=== PATIENT | male | born 1965 | race Caucasian/White ===

== ENCOUNTER → 2017-04-28 | Outpatient (REF) | payer OTHER ==
[2017-04-28 13:40] LABS: ESTIMATED AVERAGE GLUCOSE 146 MG/DL (60-110); HEMOGLOBIN A1c 6.7 %
[2017-04-28 13:53] LABS: MALB URINE SIEMENS 30.6 MG/L; MAU/CREAT RATIO 24.2 MCG/MG (0.0-30.0)
== END ==
LOC: M SFHCPLAZ 11:11
DX: E11.9 Type 2 diabetes mellitus without complications (principal)

== ENCOUNTER → 2018-01-19 | Outpatient (REF) | payer OTHER ==
[2018-01-19 12:08] LABS: HEMATOCRIT 42.3 % (42.0-52.0); HEMOGLOBIN 14.2 g/dl (13.5-17.5); MEAN CORPUSCULAR HEMOGLOBIN 30.8 pg (27.0-33.0); MEAN CORPUSCULAR HGB CONC 33.6 g/dl (32.0-36.5); MEAN CORPUSCULAR VOLUME 91.8 fl (80.0-96.0); PLATELET COUNT, AUTOMATED 192 10^3/uL (150-450); RED BLOOD COUNT 4.61 10^6/uL (4.30-6.10); RED CELL DISTRIBUTION WIDTH 12.9 % (11.5-14.5); WHITE BLOOD COUNT 6.9 10^3/uL (4.0-10.0)
[2018-01-19 12:30] LABS: ALBUMIN 4.1 GM/DL (3.2-5.2); ALBUMIN/GLOBULIN RATIO 1.21 (1.00-1.93); ALKALINE PHOSPHATASE 76 U/L (45-117); ALT/SGPT 157 U/L (12-78); ANION GAP 8 MEQ/L (8-16); AST/SGOT 72 U/L (7-37); BILIRUBIN,TOTAL 0.5 MG/DL (0.2-1.0); BLOOD UREA NITROGEN 15 MG/DL (7-18); CARBON DIOXIDE LEVEL 29 MEQ/L (21-32); CHLORIDE LEVEL 104 MEQ/L (98-107); CHOLESTEROL LEVEL 191 MG/DL (<200); CHOLESTEROL RISK RATIO 4.063 (<5); CREATININE FOR GFR 1.26 MG/DL (0.70-1.30); GLOMERULAR FILTRATION RATE > 60.0 (>56); GLUCOSE, FASTING 110 MG/DL (70-100); HDL CHOLESTEROL 47 MG/DL (>40); LDL CHOLESTEROL 98 MG/DL (<100); NON-HDL-C 144 MG/DL; POTASSIUM SERUM 4.3 MEQ/L (3.5-5.1); SODIUM LEVEL 141 MEQ/L (136-145); TOTAL PROTEIN 7.5 GM/DL (6.4-8.2); TRIGLYCERIDES LEVEL 232 MG/DL (<150)
[2018-01-19 12:48] LABS: ESTIMATED AVERAGE GLUCOSE 134 MG/DL (60-110); HEMOGLOBIN A1c 6.3 %
[2018-01-19 13:57] LABS: MAU/CREAT RATIO 36.2 MCG/MG (0.0-30.0)
== END ==
LOC: M SFHCPLAZ 08:45
DX: E11.9 Type 2 diabetes mellitus without complications (principal)
CPT/HCPCS: 84443

== ENCOUNTER → 2018-07-26 | Outpatient (REF) | payer MEDICARE, MEDICAID ==
[~2018-07-26] MED LIST: /LOR25TA PO; BENI20TA11 PO; FERR325T PO; FLEXERIL PO; NAPR500T81 PO; WELCHOL PO
[2018-07-26 11:19] LABS: ALBUMIN 4.4 GM/DL (3.2-5.2); ALT/SGPT 209 U/L (12-78); BILIRUBIN,TOTAL 0.4 MG/DL (0.2-1.0); BLOOD UREA NITROGEN 13 MG/DL (7-18); CALCIUM LEVEL 9.1 MG/DL (8.5-10.1); CARBON DIOXIDE LEVEL 30 MEQ/L (21-32); CHLORIDE LEVEL 106 MEQ/L (98-107); CHOLESTEROL LEVEL 202 MG/DL (<200); CHOLESTEROL RISK RATIO 3.607 (<5); CREATININE FOR GFR 1.24 MG/DL (0.70-1.30); GLOMERULAR FILTRATION RATE > 60.0 (>56); GLUCOSE, FASTING 164 MG/DL (70-100); HDL CHOLESTEROL 56 MG/DL (>40); LDL CHOLESTEROL 120 MG/DL (<100); NON-HDL-C 146 MG/DL; POTASSIUM SERUM 4.4 MEQ/L (3.5-5.1); SODIUM LEVEL 141 MEQ/L (136-145); TOTAL PROTEIN 7.5 GM/DL (6.4-8.2); TRIGLYCERIDES LEVEL 128 MG/DL (<150)
[2018-07-26 11:33] LABS: MAU/CREAT RATIO 43.7 MCG/MG (0.0-30.0)
[2018-07-26 11:46] LABS: HEMOGLOBIN A1c 7.5 %
== END ==
LOC: M SFHCPLAZ 08:40
PROVIDERS: ATTEND Nurse Practitioner Adult Health
DX: E11.9 Type 2 diabetes mellitus without complications (principal)

== ENCOUNTER → 2019-01-16 | Outpatient (REF) | payer MEDICARE, MEDICAID ==
[2019-01-16 14:11] LABS: ALBUMIN 4.2 GM/DL (3.2-5.2); ALT/SGPT 163 U/L (12-78); BILIRUBIN,TOTAL 0.6 MG/DL (0.2-1.0); BLOOD UREA NITROGEN 15 MG/DL (7-18); CALCIUM LEVEL 9.4 MG/DL (8.5-10.1); CARBON DIOXIDE LEVEL 30 MEQ/L (21-32); CHLORIDE LEVEL 104 MEQ/L (98-107); CHOLESTEROL LEVEL 196 MG/DL (<200); CHOLESTEROL RISK RATIO 3.563 (<5); CREATININE FOR GFR 1.25 MG/DL (0.70-1.30); GLOMERULAR FILTRATION RATE > 60.0 (>56); GLUCOSE, FASTING 132 MG/DL (70-100); HDL CHOLESTEROL 55 MG/DL (>40); LDL CHOLESTEROL 103 MG/DL (<100); NON-HDL-C 141 MG/DL; POTASSIUM SERUM 4.2 MEQ/L (3.5-5.1); SODIUM LEVEL 138 MEQ/L (136-145); TOTAL PROTEIN 7.9 GM/DL (6.4-8.2); TRIGLYCERIDES LEVEL 189 MG/DL (<150)
[2019-01-16 15:00] LABS: MALB URINE SIEMENS 35.8 MG/L; MAU/CREAT RATIO 17.1 MCG/MG (0.0-30.0)
[2019-01-16 15:28] LABS: HEMOGLOBIN A1c 8.4 %
== END ==
LOC: M SFHCPLAZ 10:42
PROVIDERS: ATTEND Nurse Practitioner Adult Health
DX: E11.9 Type 2 diabetes mellitus without complications (principal); Z13.220 Encounter for screening for lipoid disorders
CPT/HCPCS: 36415; 80053; 80061; 82043; 83036; 84443; 90682; G0008

== ENCOUNTER → 2019-10-08 | Outpatient (REF) | payer MEDICARE, MEDICAID ==
[2019-10-08 18:11] LABS: ALBUMIN 4.3 GM/DL (3.2-5.2); ALT/SGPT 94 U/L (12-78); BILIRUBIN,TOTAL 0.4 MG/DL (0.2-1.0); BLOOD UREA NITROGEN 15 MG/DL (7-18); CALCIUM LEVEL 9.8 MG/DL (8.5-10.1); CARBON DIOXIDE LEVEL 30 MEQ/L (21-32); CHLORIDE LEVEL 103 MEQ/L (98-107); CHOLESTEROL LEVEL 199 MG/DL (<200); CHOLESTEROL RISK RATIO 3.901 (<5); CREATININE FOR GFR 1.29 MG/DL (0.70-1.30); GLOMERULAR FILTRATION RATE > 60.0 (>56); GLUCOSE, FASTING 93 MG/DL (70-100); HDL CHOLESTEROL 51 MG/DL (>40); LDL CHOLESTEROL 92 MG/DL (<100); NON-HDL-C 148 MG/DL; POTASSIUM SERUM 4.6 MEQ/L (3.5-5.1); SODIUM LEVEL 140 MEQ/L (136-145); TOTAL PROTEIN 8.2 GM/DL (6.4-8.2); TRIGLYCERIDES LEVEL 279 MG/DL (<150)
[2019-10-08 18:15] LABS: HEMOGLOBIN A1c 6.9 %
[2019-10-08 18:34] LABS: CREATININE, URINE 25.6 MG/DL; MALB URINE SIEMENS < 5.0 MG/L; MAU/CREAT RATIO 19.5 MCG/MG (0.0-30.0)
== END ==
LOC: M SFHCPLAZ 14:14
PROVIDERS: ATTEND Nurse Practitioner Adult Health
DX: E11.9 Type 2 diabetes mellitus without complications (principal); I10 Essential (primary) hypertension; Z13.220 Encounter for screening for lipoid disorders

== ENCOUNTER → 2020-04-17 | Outpatient (REF) | payer MEDICARE, MEDICAID ==
[2020-04-17 14:33] LABS: HEMOGLOBIN A1c 6.6 %
[2020-04-17 15:02] LABS: ALBUMIN 4.5 GM/DL (3.2-5.2); ALT/SGPT 94 U/L (12-78); BILIRUBIN,TOTAL 0.4 MG/DL (0.2-1.0); BLOOD UREA NITROGEN 19 MG/DL (7-18); CALCIUM LEVEL 10.6 MG/DL (8.5-10.1); CARBON DIOXIDE LEVEL 31 MEQ/L (21-32); CHLORIDE LEVEL 102 MEQ/L (98-107); GLOMERULAR FILTRATION RATE > 60.0 (>56); GLUCOSE, FASTING 139 MG/DL (70-100); POTASSIUM SERUM 4.2 MEQ/L (3.5-5.1); SODIUM LEVEL 140 MEQ/L (136-145)
== END ==
LOC: M SFHCPLAZ 11:00
PROVIDERS: ATTEND Nurse Practitioner Adult Health
DX: E11.9 Type 2 diabetes mellitus without complications (principal)

== ENCOUNTER → 2020-10-16 | Outpatient (CLI) | payer MEDICARE, MEDICAID ==
[2020-10-16 18:02] LABS: ALBUMIN 4.5 GM/DL (3.2-5.2); ALT/SGPT 140 U/L (12-78); BILIRUBIN,TOTAL 0.4 MG/DL (0.2-1.0); BLOOD UREA NITROGEN 16 MG/DL (7-18); CALCIUM LEVEL 10.1 MG/DL (8.5-10.1); CARBON DIOXIDE LEVEL 31 MEQ/L (21-32); CHLORIDE LEVEL 101 MEQ/L (98-107); CHOLESTEROL LEVEL 217 MG/DL (<200); CHOLESTEROL RISK RATIO 4.018 (<5); CREATININE FOR GFR 1.24 MG/DL (0.70-1.30); GLOMERULAR FILTRATION RATE > 60.0 (>56); GLUCOSE, FASTING 184 MG/DL (70-100); HDL CHOLESTEROL 54 MG/DL (>40); LDL CHOLESTEROL 93 MG/DL (<100); NON-HDL-C 163 MG/DL; POTASSIUM SERUM 4.7 MEQ/L (3.5-5.1); SODIUM LEVEL 136 MEQ/L (136-145); TOTAL PROTEIN 8.3 GM/DL (6.4-8.2); TRIGLYCERIDES LEVEL 351 MG/DL (<150)
[2020-10-16 18:11] LABS: MALB URINE SIEMENS 28.6 MG/L
[2020-10-16 18:39] LABS: HEMOGLOBIN A1c 7.6 %
== END ==
LOC: M PLALAB 14:08
PROVIDERS: ATTEND Nurse Practitioner Adult Health
DX: Z13.220 Encounter for screening for lipoid disorders (principal); E11.9 Type 2 diabetes mellitus without complications
CPT/HCPCS: 36415; 80053; 80061; 82043; 83036; 90471; 90715; G0463

== ENCOUNTER → 2021-05-04 | Outpatient (CLI) | payer MEDICARE, MEDICAID ==
[2021-05-04 17:52] LABS: MALB URINE SIEMENS 30.5 MG/L; MAU/CREAT RATIO 20.3 MCG/MG (0.0-30.0)
[2021-05-04 18:22] LABS: ALBUMIN 4.2 GM/DL (3.2-5.2); BILIRUBIN,TOTAL 0.3 MG/DL (0.2-1.0); CALCIUM LEVEL 9.6 MG/DL (8.5-10.1); CREATININE FOR GFR 1.31 MG/DL (0.70-1.30); POTASSIUM SERUM 3.9 MEQ/L (3.5-5.1); THYROID STIMULATING HORMONE 3.07 uIU/ML (0.358-3.740); TOTAL PROTEIN 7.6 GM/DL (6.4-8.2)
[2021-05-04 19:04] LABS: HEMOGLOBIN A1c 9.8 %
== END ==
LOC: M PLALAB 15:08
PROVIDERS: ATTEND Nurse Practitioner Adult Health
DX: E11.9 Type 2 diabetes mellitus without complications (principal); Z12.5 Encounter for screening for malignant neoplasm of prostate; Z83.49 Family history of other endocrine, nutritional and metabolic diseases

== ENCOUNTER → 2021-12-07 | Outpatient (CLI) | payer MEDICARE, MEDICAID ==
[2021-12-07 14:00] LABS: ALBUMIN 4.7 GM/DL (3.2-5.2); BILIRUBIN,TOTAL 0.6 MG/DL (0.2-1.0); CALCIUM LEVEL 9.6 MG/DL (8.5-10.1); CHOLESTEROL RISK RATIO 2.666 (<5); CREATININE FOR GFR 1.42 MG/DL (0.70-1.30); GLOMERULAR FILTRATION RATE 54.7 (>56); POTASSIUM SERUM 4.2 MEQ/L (3.5-5.1); TOTAL PROTEIN 8.1 GM/DL (6.4-8.2)
[2021-12-07 14:13] LABS: MALB URINE SIEMENS 26.8 MG/L; MAU/CREAT RATIO 24.1 MCG/MG (0.0-30.0)
[2021-12-07 14:45] LABS: HEMOGLOBIN A1c 6.7 %
== END ==
LOC: M PLALAB 09:40
PROVIDERS: ATTEND Nurse Practitioner Adult Health
DX: E11.9 Type 2 diabetes mellitus without complications (principal)

== ENCOUNTER → 2022-05-31 | Outpatient (CLI) | payer MEDICARE, MEDICAID ==
[2022-05-31 14:47] LABS: CREATININE, URINE 112.3 MG/DL
[2022-05-31 14:48] LABS: MAU/CREAT RATIO 6.2 MCG/MG (0.0-30.0)
[2022-05-31 14:52] LABS: ALBUMIN 4.7 G/DL (3.2-5.2); ALKALINE PHOSPHATASE 75 U/L (46-116); ALT/SGPT 119 U/L (7.0-40); AST/SGOT 76 U/L (<34); BILIRUBIN,TOTAL 0.8 MG/DL (0.3-1.2); BLOOD UREA NITROGEN 13 MG/DL (9-23); CALCIUM LEVEL 9.8 MG/DL (8.5-10.1); CARBON DIOXIDE LEVEL 30 MMOL/L (20-31); CHLORIDE LEVEL 103 MMOL/L (98-107); CHOLESTEROL LEVEL 141 MG/DL (<200); CHOLESTEROL RISK RATIO 2.47 (<5); GLOMERULAR FILTRATION RATE > 60.0 (>56); GLUCOSE, FASTING 104 MG/DL (60-100); LDL CHOLESTEROL 48.6 MG/DL (<100); POTASSIUM SERUM 4.4 MMOL/L (3.5-5.1); SODIUM LEVEL 139 MMOL/L (136-145); THYROID STIMULATING HORMONE 3.161 uIU/ML (0.55-4.78); TOTAL PROTEIN 7.6 G/DL (5.7-8.2); TRIGLYCERIDES LEVEL 177 MG/DL (<150)
== END ==
LOC: M PLALAB 09:46
PROVIDERS: ATTEND Nurse Practitioner Adult Health
DX: Z12.5 Encounter for screening for malignant neoplasm of prostate (principal); E78.00 Pure hypercholesterolemia, unspecified
CPT/HCPCS: 80053; 80061; 82043; 84443; G0103

== ENCOUNTER → 2022-10-25 | Outpatient (CLI) | payer MEDICARE, MEDICAID ==
[2022-10-25 14:01] LABS: HEMOGLOBIN A1c 6.4 % (4.0-6.0)
[2022-10-25 14:06] LABS: ALBUMIN 4.5 G/DL (3.2-5.2); ALKALINE PHOSPHATASE 72 U/L (46-116); ALT/SGPT 109 U/L (7.0-40); AST/SGOT 54 U/L (<34); BILIRUBIN,TOTAL 0.6 MG/DL (0.3-1.2); BLOOD UREA NITROGEN 14 MG/DL (9-23); CALCIUM LEVEL 9.9 MG/DL (8.5-10.1); CARBON DIOXIDE LEVEL 28 MMOL/L (20-31); CHLORIDE LEVEL 103 MMOL/L (98-107); CHOLESTEROL LEVEL 141 MG/DL (<200); CHOLESTEROL RISK RATIO 2.63 (<5); CREATININE FOR GFR 1.19 MG/DL (0.70-1.30); GLOMERULAR FILTRATION RATE > 60.0 (>56); GLUCOSE, FASTING 112 MG/DL (60-100); HDL CHOLESTEROL 53.5 MG/DL (>40); LDL CHOLESTEROL 59.1 MG/DL (<100); NON-HDL-C 87.5 MG/DL; POTASSIUM SERUM 4.2 MMOL/L (3.5-5.1); SODIUM LEVEL 140 MMOL/L (136-145); TOTAL PROTEIN 7.4 G/DL (5.7-8.2); TRIGLYCERIDES LEVEL 142 MG/DL (<150)
[2022-10-25 14:08] LABS: THYROID STIMULATING HORMONE 2.737 uIU/ML (0.55-4.78)
== END ==
LOC: M PLALAB 10:53
PROVIDERS: ATTEND Nurse Practitioner Adult Health
DX: E11.9 Type 2 diabetes mellitus without complications (principal); Z13.220 Encounter for screening for lipoid disorders; Z83.49 Family history of other endocrine, nutritional and metabolic diseases

== ENCOUNTER → 2023-04-27 | Outpatient (CLI) | payer MEDICARE, MEDICAID ==
[2023-04-27 14:37] LABS: HEMOGLOBIN A1c 6.7 % (4.0-6.0)
[2023-04-27 14:41] LABS: ALBUMIN 4.7 G/DL (3.2-5.2); ALKALINE PHOSPHATASE 75 U/L (46-116); ALT/SGPT 112 U/L (7.0-40); AST/SGOT 49 U/L (<34); BILIRUBIN,TOTAL 0.7 MG/DL (0.3-1.2); BLOOD UREA NITROGEN 24 MG/DL (9-23); CALCIUM LEVEL 9.6 MG/DL (8.5-10.1); CARBON DIOXIDE LEVEL 28 MMOL/L (20-31); CHLORIDE LEVEL 104 MMOL/L (98-107); CHOLESTEROL LEVEL 145 MG/DL (<200); CHOLESTEROL RISK RATIO 2.62 (<5); CREATININE FOR GFR 1.16 MG/DL (0.70-1.30); GLOMERULAR FILTRATION RATE > 60.0 (>56); GLUCOSE, FASTING 98 MG/DL (60-100); HDL CHOLESTEROL 55.3 MG/DL (>40); LDL CHOLESTEROL 61.5 MG/DL (<100); NON-HDL-C 89.7 MG/DL; POTASSIUM SERUM 4.2 MMOL/L (3.5-5.1); SODIUM LEVEL 139 MMOL/L (136-145); THYROID STIMULATING HORMONE 2.365 uIU/ML (0.55-4.78); TOTAL PROTEIN 7.7 G/DL (5.7-8.2); TRIGLYCERIDES LEVEL 141 MG/DL (<150)
[2023-04-27 14:42] LABS: MAU/CREAT RATIO 14.7 MCG/MG (0.0-30.0)
== END ==
LOC: M PLALAB 11:08
PROVIDERS: ATTEND Nurse Practitioner Adult Health
DX: E11.9 Type 2 diabetes mellitus without complications (principal); Z13.220 Encounter for screening for lipoid disorders; Z83.49 Family history of other endocrine, nutritional and metabolic diseases

== ENCOUNTER 2023-07-13 10:40 | Emergency (ER) | payer MEDICARE, MEDICAID ==
[~2023-07-13] VITALS: Ht 172.7 cm; Wt 104.7 kg
[2023-07-13] MEDS ORDERED: ALBU8.5H (10:52)
[2023-07-13] MEDS ORDERED: MELO15TA28 (10:52)
[2023-07-13] MEDS ORDERED: ARNU1INH3 (10:52)
[2023-07-13] MEDS ORDERED: STEG15TA (10:52)
[2023-07-13] MEDS ORDERED: LOSA100T46 (10:52)
[2023-07-13] MEDS ORDERED: ATOR1TAB19 (10:52)
[2023-07-13] MEDS ORDERED: METF-838 (10:52)
[2023-07-13 11:18] LABS: BASO # 0.1 10^3/uL (0.0-0.2); BASO % 0.9 % (0.0-1.0); EOS # 0.1 10^3/uL (0.0-0.5); EOS % 1.4 % (0.0-3.0); HEMATOCRIT 42.9 % (42.0-52.0); HEMOGLOBIN 15.1 g/dl (13.5-17.5); LYMPH # 1.2 10^3/uL (1.5-5.0); LYMPH % 18.3 % (24.0-44.0); MEAN CORPUSCULAR HEMOGLOBIN 31.7 pg (27.0-33.0); MEAN CORPUSCULAR HGB CONC 35.2 g/dl (32.0-36.5); MEAN CORPUSCULAR VOLUME 90.1 fl (80.0-96.0); MONO # 0.4 10^3/uL (0.0-0.8); MONO % 5.8 % (2.0-8.0); NEUTROPHILS # 4.8 10^3/uL (1.5-8.5); NEUTROPHILS % 73.3 % (36.0-66.0); PLATELET COUNT, AUTOMATED 180 10^3/uL (150-450); RED BLOOD COUNT 4.76 10^6/uL (4.30-6.10); WHITE BLOOD COUNT 6.6 10^3/uL (4.0-10.0)
[2023-07-13 11:45] LABS: LIPASE 47 U/L (12-53)
[2023-07-13 11:47] LABS: ALBUMIN 4.8 G/DL (3.2-5.2); ALKALINE PHOSPHATASE 83 U/L (46-116); ALT/SGPT 94 U/L (7.0-40); AST/SGOT 44 U/L (<34); BILIRUBIN,DIRECT 0.2 MG/DL (<0.4); BILIRUBIN,TOTAL 0.4 MG/DL (0.3-1.2); BLOOD UREA NITROGEN 17 MG/DL (9-23); CALCIUM LEVEL 10.5 MG/DL (8.5-10.1); CARBON DIOXIDE LEVEL 28 MMOL/L (20-31); CHLORIDE LEVEL 104 MMOL/L (98-107); CK-MB VALUE MASS 2.4 NG/ML (<3.6); CPK CREATINE PHOSPHOKINASE 242 U/L (46-171); CREATININE FOR GFR 1.16 MG/DL (0.70-1.30); GLOMERULAR FILTRATION RATE > 60.0 (>56); GLUCOSE, FASTING 198 MG/DL (60-100); MB/CK RELATIVE INDEX 0.99 (< OR =4); POTASSIUM SERUM 4.3 MMOL/L (3.5-5.1); SODIUM LEVEL 139 MMOL/L (136-145); TOTAL PROTEIN 7.8 G/DL (5.7-8.2)
[2023-07-13 11:49] LABS: FREE T4 1.07 NG/DL (0.89-1.76); THYROID STIMULATING HORMONE 1.321 uIU/ML (0.55-4.78)
[2023-07-13 12:37] LABS: CK-MB VALUE MASS 2.3 NG/ML (<3.6)
[2023-07-13 12:40] LABS: MB/CK RELATIVE INDEX 0.85 (< OR =4)
[2023-07-13] MEDS ORDERED: ISOVUE-370 76% 100ML VIAL As Ordered ONE (13:00)
[2023-07-13 16:15] VITALS: BP 158/75; TEMP 98.7; O2SAT 95
== END 2023-07-13 16:35 | disposition home or self-care (01) ==
LOC: M ED 10:40
DX: R07.9 Chest pain, unspecified (principal); R00.0 Tachycardia, unspecified; E11.9 Type 2 diabetes mellitus without complications; I10 Essential (primary) hypertension; Z87.891 Personal history of nicotine dependence; Z79.1 Long term (current) use of non-steroidal anti-inflammatories (NSAID); Z79.51 Long term (current) use of inhaled steroids; Z79.899 Other long term (current) drug therapy; Z79.84 Long term (current) use of oral hypoglycemic drugs
CPT/HCPCS: 36415; 71046; 71275; 80048; 80076; 82550; 82553; 83690; 84439; 84443; 84484; 85025; 93005; 99285; Q9967

== ENCOUNTER → 2023-07-21 | Outpatient (CLI) | payer MEDICAID, MEDICARE ==
[~2023-07-21] MED LIST changes: +ALBU8.5H; +ARNU1INH3; +ATOR1TAB19; +LOSA100T46; +MELO15TA28; +METF-838; +STEG15TA
== END ==
LOC: M PLAIMG 12:39
PROVIDERS: ATTEND Nurse Practitioner Adult Health
DX: M25.512 Pain in left shoulder (principal)

== ENCOUNTER → 2023-10-26 | Outpatient (CLI) | payer MEDICARE, MEDICAID ==
[2023-10-26 14:47] LABS: PSA SCREENING 0.62 NG/ML (< 4.00)
[2023-10-26 14:50] LABS: ALBUMIN 4.7 G/DL (3.2-5.2); ALKALINE PHOSPHATASE 89 U/L (46-116); ALT/SGPT 131 U/L (7.0-40); AST/SGOT 79 U/L (<34); BILIRUBIN,TOTAL 0.7 MG/DL (0.3-1.2); BLOOD UREA NITROGEN 19 MG/DL (9-23); CARBON DIOXIDE LEVEL 30 MMOL/L (20-31); CHLORIDE LEVEL 104 MMOL/L (98-107); CHOLESTEROL LEVEL 159 MG/DL (<200); CREATININE FOR GFR 1.24 MG/DL (0.70-1.30); GLOMERULAR FILTRATION RATE > 60.0 (>56); GLUCOSE, FASTING 107 MG/DL (60-100); HDL CHOLESTEROL 49.6 MG/DL (>40); LDL CHOLESTEROL 71.8 MG/DL (<100); NON-HDL-C 109.4 MG/DL; POTASSIUM SERUM 4.1 MMOL/L (3.5-5.1); SODIUM LEVEL 140 MMOL/L (136-145); TOTAL PROTEIN 8.2 G/DL (5.7-8.2); TRIGLYCERIDES LEVEL 188 MG/DL (<150)
[2023-10-26 14:51] LABS: THYROID STIMULATING HORMONE 2.132 uIU/ML (0.55-4.78)
[2023-10-26 14:52] LABS: FREE T4 1.27 NG/DL (0.89-1.76)
[2023-10-26 15:18] LABS: HEMOGLOBIN A1c 6.8 % (4.0-6.0)
== END ==
LOC: M PLALAB 10:33
PROVIDERS: ATTEND Nurse Practitioner Adult Health
DX: E11.9 Type 2 diabetes mellitus without complications (principal); Z83.49 Family history of other endocrine, nutritional and metabolic diseases; Z12.5 Encounter for screening for malignant neoplasm of prostate

== ENCOUNTER → 2024-06-19 | Outpatient (CLI) | payer MEDICARE, MEDICAID ==
[2024-06-19 18:11] LABS: ALBUMIN 4.8 G/DL (3.2-5.2); ALKALINE PHOSPHATASE 82 U/L (40-129); ALT/SGPT 121 U/L (7.0-40); AST/SGOT 60 U/L (<34); BILIRUBIN,TOTAL 0.6 MG/DL (0.3-1.2); BLOOD UREA NITROGEN 20 MG/DL (9-23); CARBON DIOXIDE LEVEL 29 MMOL/L (20-31); CHLORIDE LEVEL 103 MMOL/L (98-107); CHOLESTEROL LEVEL 151 MG/DL (<200); CHOLESTEROL RISK RATIO 3.09 (<5); CREATININE FOR GFR 1.13 MG/DL (0.70-1.30); GLOMERULAR FILTRATION RATE > 60.0 (>49); GLUCOSE, FASTING 104 MG/DL (74-106); HDL CHOLESTEROL 48.8 MG/DL (>40); LDL CHOLESTEROL 68.8 MG/DL (<100); NON-HDL-C 102.2 MG/DL; POTASSIUM SERUM 4.5 MMOL/L (3.5-5.1); SODIUM LEVEL 142 MMOL/L (136-145); TOTAL PROTEIN 8.1 G/DL (5.7-8.2); TRIGLYCERIDES LEVEL 167 MG/DL (<150)
[2024-06-19 18:12] LABS: FREE T4 1.22 NG/DL (0.89-1.76); THYROID STIMULATING HORMONE 2.266 uIU/ML (0.55-4.78)
[2024-06-19 18:27] LABS: HEMOGLOBIN A1c 6.9 % (4.0-6.0)
== END ==
LOC: M PLALAB 15:20
PROVIDERS: ATTEND Nurse Practitioner Adult Health
DX: E11.9 Type 2 diabetes mellitus without complications (principal); Z83.49 Family history of other endocrine, nutritional and metabolic diseases

== ENCOUNTER → 2024-11-20 | Outpatient (CLI) | payer MEDICARE, MEDICAID ==
[2024-11-20 15:33] LABS: CREATININE, URINE 117.3 MG/DL
[2024-11-20 15:35] LABS: MALB URINE SIEMENS 19.0 MG/L; MAU/CREAT RATIO 16.1 MCG/MG (0.0-30.0)
[2024-11-20 15:44] LABS: ALT/SGPT 104 U/L (7.0-40); AST/SGOT 56 U/L (<34); CALCIUM LEVEL 10.1 MG/DL (8.3-10.6); CARBON DIOXIDE LEVEL 25 MMOL/L (20-31); CHLORIDE LEVEL 108 MMOL/L (98-107); CHOLESTEROL LEVEL 141 MG/DL (<200); CHOLESTEROL RISK RATIO 2.56 (<5); CREATININE FOR GFR 1.22 MG/DL (0.70-1.30); GLOMERULAR FILTRATION RATE 67.9 (>49); LDL CHOLESTEROL 59.6 MG/DL (<100); NON-HDL-C 86.0 MG/DL; POTASSIUM SERUM 4.3 MMOL/L (3.5-5.1); SODIUM LEVEL 145 MMOL/L (136-145); TRIGLYCERIDES LEVEL 132 MG/DL (<150)
[2024-11-20 16:52] LABS: ESTIMATED AVERAGE GLUCOSE 143.0 MG/DL (60-110)
[2024-11-20 17:17] LABS: FREE T4 1.32 NG/DL (0.89-1.76)
[2024-11-20 18:02] LABS: HEPATITIS C VIRUS ABY INDEX > 11.00 INDEX (<0.8)
[2024-11-24 00:52] LABS: HCV RNA QUANTITATION <15 NOT DETECTED IU/mL (NOT DETECTED); HCV RNA log10 <1.18 NOT DETECTED Log IU/mL (NOT DETECTED)
[2024-11-24 19:41] LABS: ALPHA 2-MACROGLOBULINS,QN 187 mg/dL (106-279); ALT (SGPT) P5P 73 U/L (9-46); APOLIPOPROTEIN A-1 168 mg/dL (94-176); FIBROSIS SCORE 0.35; FIBROSIS STAGE MINIMAL FIBROSIS (F0); GGT 76 U/L (3-70); HAPTOGLOBIN 94 mg/dL (43-212); NECROINFLAM ACT GRADE MINIMAL ACTIVITY (A0); NECROINFLAM ACT SCORE 0.46
== END ==
LOC: M PLALAB 10:39
PROVIDERS: ATTEND Nurse Practitioner Adult Health
DX: E11.9 Type 2 diabetes mellitus without complications (principal); Z83.49 Family history of other endocrine, nutritional and metabolic diseases; Z86.19 Personal history of other infectious and parasitic diseases

== ENCOUNTER → 2024-12-14 | Outpatient (CLI) | payer MEDICARE, MEDICAID | LOC: M PLAIMG 09:07 | PROVIDERS: ATTEND Nurse Practitioner Family | DX: S59.901A Unspecified injury of right elbow, initial encounter (principal); Y93.9 Activity, unspecified; Y92.9 Unspecified place or not applicable ==